=== PATIENT | female | born 2000 | race Two or more races ===

== ENCOUNTER 2023-11-15 18:20 | Emergency (ER) | payer OTHER ==
[~2023-11-15] VITALS: Ht 170.2 cm; Wt 45.4 kg
[2023-11-15] MEDS: METOCLOPRAMIDE HCL 10 MG TABLET PO ONE (18:43)
[2023-11-15] MEDS ORDERED: METOCLOPRAMIDE HCL 10 MG/2 ML VIAL ONE (18:45)
[2023-11-15] MEDS: IV NS 1000 ML 1,000 ML IV ONE (18:50)
[2023-11-15 18:52] LABS: BASOPHILS % (AUTO) 0.4 % (0.0-2.0); EOSINOPHILS # (AUTO) 1.4 K/uL (0.0-0.7); HEMOGLOBIN 15.2 g/dL (10.9-14.3); LYMPHOCYTES # (AUTO) 0.3 K/uL (0.8-4.8); LYMPHOCYTES % (AUTO) 5.6 % (20.5-51.5); MEAN CORPUSCULAR HEMOGLOBIN 33.6 uug (24.7-32.8); MEAN CORPUSCULAR HGB CONC 35 g/dL (32.3-35.6); MONOCYTES % (AUTO) 0.7 % (0.0-11.0); NEUTROPHILS # (AUTO) 3.6 K/uL (1.8-8.9); NEUTROPHILS % (AUTO) 67.1 % (38.5-71.5); PLATELET COUNT (AUTO) 260 K/uL (179-408); RED BLOOD CELL COUNT(AUTO) 4.54 MIL/uL (3.63-4.92); RED CELL DISTRIBUTION WIDTH 11.7 % (12.3-17.7); WHITE BLOOD COUNT (AUTO) 5.3 K/uL (3.8-11.8)
[2023-11-15] MEDS: METOCLOPRAMIDE HCL 10 MG/2 ML VIAL IV ONE (18:53)
[2023-11-15 18:54] LABS: DIFFERENTIAL COMMENT 1; EOSINOPHILS % (AUTO) 26.2 % (0.0-7.0)
[2023-11-15] MEDS ORDERED: LORAZEPAM 2 MG/1 ML VIAL ONE (18:55)
[2023-11-15] MEDS: LORAZEPAM 2 MG/1 ML VIAL IV ONE (18:59)
[2023-11-15 19:07] LABS: ALBUMIN 4.5 g/dL (3.4-5.0); BILIRUBIN,DIRECT 0.2 mg/dL (0.0-0.2); BILIRUBIN,TOTAL 1.3 mg/dL (0.2-1.0); CALCIUM 9.2 mg/dL (8.5-10.1); CREATININE 0.9 mg/dL (0.6-1.3); TOTAL PROTEIN, SERUM 8.3 g/dL (6.4-8.2)
[2023-11-15 19:56] LABS: POTASSIUM 3.2 mmol/L (3.5-5.1)
[2023-11-15 20:16] LABS: MAGNESIUM 1.9 mg/dL (1.8-2.4); PHOSPHOROUS 3.3 mg/dL (2.5-4.9)
[2023-11-15] MEDS: DEXTROSE 5 %-0.45 % NACL 500 ML IV.SOLN IV ONE (20:40)
[2023-11-15] MEDS ORDERED: LORA0.5T48 PO (22:45)
[2023-11-15] MEDS ORDERED: METO-295 PO (22:45)
[2023-11-15 23:38] VITALS: BP 104/76; TEMP 98.3; O2SAT 98
== END 2023-11-15 23:30 | disposition home or self-care (01) ==
LOC: ER 18:22
DX: K31.84 Gastroparesis (principal); R11.15 Cyclical vomiting syndrome unrelated to migraine; Z79.899 Other long term (current) drug therapy; Z88.1 Allergy status to other antibiotic agents
CPT/HCPCS: 99284; 96374; 96375; 80076; 80048; 83690; 83735; 84100; 85025; 36415; J2060; J2765; J7040; A4606; A4663